=== PATIENT | male | born 1990 | race Caucasian/White ===

== ENCOUNTER 2021-04-01 18:26 | Emergency (ER) | payer BC, MEDICAID ==
[~2021-04-01] VITALS: Ht 180.3 cm; Wt 90.9 kg
[~2021-04-01 18:26] MED LIST: FLO0.4C PO; ZOF4T PO
[2021-04-01 19:22] LABS: BASOPHILS % (AUTO) 0.5 % (0-1); EOSINOPHILS # (AUTO) 0.2 X10'3 (0-0.9); EOSINOPHILS % (AUTO) 2.3 % (0-6); HEMATOCRIT 37.9 % (42.0-52.0); HEMOGLOBIN 13.2 g/dl (14.0-17.9); LYMPHOCYTES % (AUTO) 28.3 % (21-51); MEAN CORPUSCULAR HEMOGLOBIN 29.2 PG (27.0-31.0); MEAN CORPUSCULAR HGB CONC 34.9 g/dL (33.0-36.5); MEAN CORPUSCULAR VOLUME 83.7 FL (78-98); MONOCYTES # (AUTO) 0.7 X10'3 (0-0.9); MONOCYTES % (AUTO) 10.4 % (2-12); NEUTROPHILS # (AUTO) 4.1 X10'3 (1.8-7.7); NEUTROPHILS % (AUTO) 58.5 % (42-75); PLATELET COUNT 226 X10'3 (140-440); RED BLOOD COUNT 4.53 X10'6 (4.70-6.10); RED CELL DISTRIBUTION WIDTH 13.1 % (11.5-14.5); WHITE BLOOD COUNT 7.1 X10'3 (4.5-11.0)
[2021-04-01 19:32] LABS: ALANINE AMINOTRANSFERASE 27 U/L (12-78); ALBUMIN 4.1 G/DL (3.4-5.0); ALBUMIN/GLOBULIN RATIO 1.2 (1.1-1.5); ALKALINE PHOSPHATASE 94 IU/L (46-116); ANION GAP 9 (8-16); ASPARTATE AMINO TRANSFERASE 19 U/L (10-37); BILIRUBIN,TOTAL 0.9 MG/DL (0.1-1.0); BLOOD UREA NITROGEN 17 MG/DL (7-18); BUN/CREATININE RATIO 15.9 (5.4-32.0); CALCIUM 8.8 MG/DL (8.5-10.1); CHLORIDE 102 MMOL/L (99-107); CREATININE 1.07 MG/DL (0.60-1.10); GLUCOSE 102 MG/DL (70-104); POTASSIUM 3.8 MMOL/L (3.5-5.1); SODIUM 137 MMOL/L (135-145); TOTAL CARBON DIOXIDE 26.3 MMOL/L (24-32); TOTAL PROTEIN 7.6 G/DL (6.4-8.2); eGFR 81 ML/MIN
[2021-04-01 21:35] LABS: ETHANOL < 0.010 GM/DL (0.0-0.010)
--- NOTE | 2021-04-01 22:05 | NUR ---
Patient ambulatory to and from bathroom with steady gait. Urine specimen collected and sent.
[2021-04-01 22:35] LABS: CLARITY,URINE CLEAR (Clear); COLOR,URINE YELLOW (Yellow); GLUCOSE, URINE NEGATIVE (Neg); KETONES,URINE NEGATIVE (Neg); LEUKOCYTE ESTERASE ,URINE NEGATIVE (Neg); NITRITES, URINE NEGATIVE (Neg); OCCULT BLOOD,URINE NEGATIVE (Neg); PROTEIN,URINE NEGATIVE (Neg); URINE AMPHETAMINE SCREEN NEGATIVE (Neg); URINE BARBITUATE SCREEN NEGATIVE (Neg); URINE BENZODIAZEPINES SCREEN NEGATIVE (Neg); URINE CANNABINOID SCREEN POSITIVE (Neg); URINE COCAINE SCREEN NEGATIVE (Neg); URINE METHADONE SCREEN NEGATIVE (Neg); URINE OPIATE SCREEN NEGATIVE (Neg); URINE PHENCYCLIDINE SCREEN NEGATIVE (Neg)
[2021-04-01 22:46] LABS: UA COLLECTION TYPE CLN CATCH MIDSTREAM
[2021-04-01 23:55] VITALS: BP 106/65
== END 2021-04-01 23:56 | disposition home or self-care (01) ==
LOC: ER 18:26
DX: D64.9 Anemia, unspecified (principal); R07.89 Other chest pain; R51.9 Headache, unspecified; R53.83 Other fatigue; K21.9 Gastro-esophageal reflux disease without esophagitis; R06.89 Other abnormalities of breathing; F12.90 Cannabis use, unspecified, uncomplicated; Z87.442 Personal history of urinary calculi; Z72.89 Other problems related to lifestyle; Z79.899 Other long term (current) drug therapy
CPT/HCPCS: 36415; 71045; 80053; 80305; 80320; 81003; 83880; 84484; 85025; 93005; 99285

== ENCOUNTER 2025-03-14 13:34 | Emergency (ER) | payer BC, OTHER ==
[~2025-03-14] VITALS: Ht 175.3 cm; Wt 92.0 kg
[~2025-03-14 13:34] MED LIST changes: -FLO0.4C PO; +TAMS-55 PO
[2025-03-14 13:36] VITALS: BP 138/91; TEMP 98
[2025-03-14 14:19] LABS: URINE AMPHETAMINE SCREEN NEGATIVE (Neg); URINE BARBITUATE SCREEN NEGATIVE (Neg); URINE BENZODIAZEPINES SCREEN NEGATIVE (Neg); URINE CANNABINOID SCREEN POSITIVE (Neg); URINE COCAINE SCREEN NEGATIVE (Neg); URINE METHADONE SCREEN NEGATIVE (Neg); URINE OPIATE SCREEN NEGATIVE (Neg); URINE PHENCYCLIDINE SCREEN NEGATIVE (Neg)
[2025-03-14 15:36] VITALS: PULSE 66; RESP 18; O2SAT 98
--- NOTE | 2025-03-14 16:25 | Physician Documentation ---
History of Present Illness ~ General Chief Complaint: See Chief Complaint Stated Complaint: DRUG TEST Time Seen by MD: 15:01 Primary Medical Doctor: [facility] History of Present Illness Initial Comments This 34-year-old male is here for worker's comp claim. He says he sideswiped an object this afternoon while using a heavy equipment and was advised to come to the ED for evaluation of via drug test. denies intoxication or use of drugs. Medication Reconciliation Allergies: Coded Allergies: No Known Allergies (Unverified , 03/03/17) Scheduled Ondansetron ODT* (Zofran ODT*), 8 MG PO Q6H Tamsulosin Hcl* (Flomax*), 0.4 MG PO DAILY Past Medical History Past Medical History: GERD, Kidney Stones Past Surgical History: no surgical history Alcohol Use: Occasionally Drug Use: marijuana Lives In: Home Occupation: employed Review of Systems All Other Systems at this time: Reviewed and Negative ROS As stated above in the HPI, otherwise all systems are reviewed and negative. Physical Exam Physical Exam Vital Signs: Temperature: 98.0, Source: Temporal, Heart Rate: 66, Respiratory Rate: 18, BP: 138/91, Pulse Oximetry: 98, Weight: 92.000 Oxygen Flow Rate: 0 Physical Exam General: Alert, no apparent distress. Neurologic: Oriented x4. Psychiatric: Normal mood and affect. Skin: Normal color, warm and dry. No edema, no ecchymosis. Progress Results/Orders Results/Orders Completed Orders - LUIS NAVARRETE NP Drug Screen, Urine (03/14/25 13:39) Vital Signs 03/14/25 03/14/25 13:36 15:36 Temp 98.0 Pulse 82 66 Resp 16 18 B/P (MAP) 138/91 Pulse Ox 100 98 O2 Flow Rate 0 Laboratory Tests Test 03/14/25 13:39 Urine Opiates Screen Negative Urine Methadone Screen Negative Urine Fentanyl Screen Negative Urine Barbiturates Screen Negative Urine Phencyclidine Screen Negative Urine Amphetamines Screen Negative Urine Benzodiazepines Screen Negative Urine Cocaine Screen Negative Urine Cannabinoids Screen Positive Drug Screen Comment Medical Decision Making Findings Patient tested positive for marijuana via drug test. It is unclear if this is current intoxication or residual .this can be determined by patient's company Departure Disposition: 01 HOME / SELF CARE / HOMELESS Impression: Primary Impression: General medical exam Condition: Stable Discharge Instructions: Illegal Drug Use Information, Teen Additional Instructions: Tested positive for marijuana and no other illicit substances that we test for. Referrals: NO PRIMARY CARE PROVIDER (PCP) Signature Scribe Signature: re Attestation: Scribed for Luis Navarrete Court Messenger by Luis Leiva NP . 03/14/25 16:27 LUIS NAVARRETE NP Mar 14, 2025 16:25
== END 2025-03-14 16:35 | disposition home or self-care (01) ==
LOC: ER 13:35
DX: F12.90 Cannabis use, unspecified, uncomplicated (principal); K21.9 Gastro-esophageal reflux disease without esophagitis; Z79.899 Other long term (current) drug therapy; Z87.442 Personal history of urinary calculi
CPT/HCPCS: 80305; 99283

== ENCOUNTER 2025-04-12 15:54 | Emergency (ER) | payer OTHER ==
[~2025-04-12] VITALS: Ht 177.8 cm; Wt 90.9 kg
[2025-04-12 16:11] VITALS: BP 131/85; PULSE 78; RESP 16; TEMP 97.1; O2SAT 99
--- NOTE | 2025-04-12 17:43 | Physician Documentation ---
History of Present Illness ~ Chief Complaint: Flu Symptoms Stated Complaint: "I AM NOT FEELING WELL" Time Seen by MD: 16:50 OK to notify your PCP?: Yes Primary Medical Doctor: [facility] Source: patient Mode of Arrival: POV Exam Limitations: no limitations HPI 34-year-old male who is here with fever and body aches which he states started three days ago. He decided to come to the ER to make sure he does not have a bacterial infection. He states his daughter was recently prescribed antibiotics and he was not sure if he needed the same. He states his symptoms are just body aches, fever, chills and a cough. He reports he has had pneumonia before and states this does not seem as bad as when I had pneumonia. He denies sore throat, sinus pain or congestion, ear pain or shortness of breath. Medication Reconciliation Allergies: Coded Allergies: No Known Allergies (Unverified , 04/12/25) Scheduled Ondansetron ODT* (Zofran ODT*), 8 MG PO Q6H Tamsulosin Hcl* (Flomax*), 0.4 MG PO DAILY Past Medical History Past Medical History: GERD, Kidney Stones Past Surgical History: no surgical history Alcohol Use: Occasionally Drug Use: marijuana Lives In: Home Occupation: employed Review of Systems All Other Systems at this time: Reviewed and Negative Physical Exam Vital Signs: Temperature: 97.1, Source: Temporal, Heart Rate: 78, Respiratory Rate: 16, BP: 131/85, Pulse Oximetry: 99, Weight: 90.910 Oxygen Flow Rate: 0 Physical Exam General Appearance: Alert, WD/WN. NAD. HEENT: NCAT, PERRL, EOMI. Posterior pharyngeal wall normal, no rhinorrhea, bulbar conjunctiva clear no increased injection, no sinus tenderness. Neck: Supple, trachea midline. No cervical lymphadenopathy. Cardiovascular: RRR. No m/r/g. Lungs: CTAB. Breathing unlabored no coughing during exam Extremities: Normal inspection. No edema. Skin: Warm/dry, normal color Neurological: Alert and oriented x4, normal gait. Psychiatric: Affect congruent with mood. Progress Results/Orders Results/Orders Vital Signs 04/12/25 16:11 Temp 97.1 Pulse 78 Resp 16 B/P (MAP) 131/85 Pulse Ox 99 O2 Flow Rate 0 Medical Decision Making Differential Dx:Considerations: Include: CVA, Dehydration, Drug toxicity, Electrolyte imbalance, Influenza, Meningitis, Mycardial infarction, Pneumonia, Pneumonitis, Pulmonary embolus, Pyelonephritis, Respiratory failure, Sepsis, UTI, Viral Syndrome, Other Additional Comment Findings consistent with viral respiratory infection discussed doing COVID testing to see if he has COVID as he is still within the treatment window but patient declined. I also discussed getting a chest x-ray to rule out pneumonia even though I had a very low suspicion for pneumonia given his symptoms only started three days ago and he had no shortness of breath and vital signs are normal patient agreed with this. Departure Time of Disposition: 17:40 Disposition: 01 HOME / SELF CARE / HOMELESS Impression: Primary Impression: Viral respiratory infection Condition: Stable Discharge Instructions: Viral Illness Additional Instructions: Symptoms consistent with viral respiratory infection I have given you a note for work for two days if you have worsening of your symptoms return to the emergency room. Departure Forms: Excuse form Work or School Excused From: Work Excuse beginning now through the following date: Apr 14, 2025 May Return to full physical activity as of: Apr 15, 2025 Referrals: NO PRIMARY CARE PROVIDER (PCP) Education Educated: Patient Educated regarding: diagnosis, treatment, need for follow up Signature Scribe Signature: x Attestation: LIZZ Hyman Apr 12, 2025 17:43
== END 2025-04-12 17:49 | disposition home or self-care (01) ==
LOC: ER 15:55
DX: J98.8 Other specified respiratory disorders (principal); B97.89 Other viral agents as the cause of diseases classified elsewhere; F12.90 Cannabis use, unspecified, uncomplicated
CPT/HCPCS: 99282